=== PATIENT | female | born 1975 | race Caucasian/White ===

== ENCOUNTER → 2020-06-10 | Day surgery (SDC) | payer OTHER ==
[2020-06-02 15:31] LABS: ALBUMIN 3.9 G/DL (3.4-5.0); ALKALINE PHOSPHATASE 92 IU/L (46-116); BLOOD UREA NITROGEN 11 MG/DL (7-18); BUN/CREATININE RATIO 11.6 (6.6-38.0); CALCIUM 8.9 MG/DL (8.5-10.1); CHLORIDE 99 MMOL/L (99-107); CREATININE 0.95 MG/DL (0.40-0.90); PRE OP ALT 24 U/L (30-65); PRE OP ANION GAP 10 (8-16); PRE OP AST 15 U/L (10-37); PRE OP BILIRUB, TOTAL 0.3 MG/DL (0.0-1.0); PRE OP POTASSIUM 3.7 MMOL/L (3.4-5.1); PRE OP SODIUM 136 MMOL/L (135-145); TOTAL CARBON DIOXIDE 27.3 MMOL/L (24-32); eGFR 64 ML/MIN
[2020-06-02 15:32] LABS: HCG SERUM QL NEGATIVE
[2020-06-02 15:33] LABS: PRE OP GLUCOSE 295 MG/DL (70-104)
[2020-06-02 15:51] LABS: HEMOGLOBIN A1C 9.2 % (4.5-6.2)
[~2020-06-10] VITALS: Ht 160 cm; Wt 82.6 kg
[2020-06-10] VITALS (11 sets, daily range): BP systolic 107–144; BP diastolic 62–104
[~2020-06-10] MED LIST: BUPIVAcaine/PF 2.5 mg/ml (0.25%) 30ml vial ONE; HYDR-3964 PO; IBUP-1986 PO; INSU100I31 SQ; LIDOcaine 2% (20mg/ml) 5ml vial ONE; MIDAZolam 5mg/5ml vial ONE; ROPIVAcaine 0.5% (5mg/ml) 30ml vial ONE; acetaminophen 325mg tablet PO ONE; ascorbic acid 500mg tablet PO ONE; ceFAZolin 2gm in dextrose, iso 50 ML IV ONE; celeCOXIB 100mg capsule PO ONE; diazepam 5mg tablet PO ONE; duloxetine 20mg capsule.DR PO ONE; ePHEDrine 50MG/ML INJ. ONE; famotidine 20mg tablet PO ONE; fentaNYL/PF 50MCG/1 ML 2ML syringe ONE; gabapentin 300mg capsule PO ONE; insulin regular, human U-100 3ml vial - multi-dose IV ONE; meperidine/PF 25mg/ml syringe IV PRN; metoclopramide 5 mg/ml inj IV ONE; morphine 2 MG/ML inj. syringe IV PRN; morphine 4 MG/ML inj SYRINge IV PRN; ondansetron/PF 4mg/2ml inj IV PRN; ondansetron/PF 4mg/2ml inj ONE; oxyCODONE SR 10mg (sust. release) tab -2 tabs (20mg) PO ONE; proCHLORperazine 10 MG/2 ml inj IV PRN; propofol inj 20 ML IV ONE; ringers solution, lacted 1,000 ML IV SCH; sevoflurane 250ml liquid IH ONE; tranexamic acid 1gm/0.7% sal. 100 ML IV ONE; triamcinolone acetonide 40mg/ml inj ONE; vancomycin 1,500 MG in NS 300ml IV soln IV ONE
[2020-06-10 10:31] LABS: BASOPHILS % (AUTO) 0.4 % (0-1); EOSINOPHILS # (AUTO) 0.1 X10'3 (0-0.9); EOSINOPHILS % (AUTO) 0.5 % (0-6); HEMATOCRIT 38.3 % (35.0-45.0); HEMOGLOBIN 13.2 g/dl (12.0-16.0); LYMPHOCYTES # (AUTO) 1.2 X10'3 (1.1-4.8); MEAN CORPUSCULAR HEMOGLOBIN 29.8 PG (27.0-31.0); MEAN CORPUSCULAR HGB CONC 34.5 g/dL (33.0-36.5); MEAN CORPUSCULAR VOLUME 86.5 FL (78-98); MEAN PLATELET VOLUME 7.3 FL (7.4-10.4); MONOCYTES # (AUTO) 0.5 X10'3 (0-0.9); MONOCYTES % (AUTO) 4.6 % (2-12); NEUTROPHILS # (AUTO) 8.3 X10'3 (1.8-7.7); NEUTROPHILS % (AUTO) 82.5 % (42-75); PLATELET COUNT 371 X10'3 (140-440); RED BLOOD COUNT 4.43 X10'6 (4.20-5.60); RED CELL DISTRIBUTION WIDTH 13.1 % (11.5-14.5); WHITE BLOOD COUNT 10.1 X10'3 (4.5-11.0)
--- NOTE | 2020-06-10 14:01 | NUR ---
RECEIVED FROM OR VIA [facility] ACCOMPANIED BY ANESTHESIOLOGIST DR LOONEY, REPORT GIVEN. PT DROWSY BUT AROUSES EASILY WITH NO COMPLAINT OF PAIN. 20 GAUGE PIV L HAND PATENT AND RUNNING LR AT 100 ML. R SHOULDER DRESSING CDI. PPULSES PRESENT GOOD CAP REFILL, SKIN PINK AND WARM, VSS, RESTING COMFORTABLY AT THIS TIME.
--- NOTE | 2020-06-10 15:31 | NUR ---
PT AWAKE AND ALERT WITH NO COMPLAINT OF PAIN. 20 GAUGE PIV L HAND DC/D CATH TIP INTACT. R SHOULDER DRESSING CDI. PPULSES PRESENT GOOD CAP REFILL, SKIN PINK AND WARM, VSS, RESTING COMFORTABLY AT THIS TIME. ABLE TO AMBULATE AND TOLERATE FLUIDS. DISCHARGE INSTRUCTIONS GIVEN AND PT VERBALIZED UNDERSTANDING. TRANSPORTED VIA WHEELCHAIR TO SPOUSE IN PRIVATE VEHICLE TO HOME.
== END | disposition home or self-care (01) ==
LOC: PAS 09:04
PROVIDERS: ATTEND Orthopaedic Surgery
DX: S43.431A Superior glenoid labrum lesion of right shoulder, initial encounter (principal); M75.41 Impingement syndrome of right shoulder; M19.011 Primary osteoarthritis, right shoulder; M94.211 Chondromalacia, right shoulder; M17.12 Unilateral primary osteoarthritis, left knee; E11.51 Type 2 diabetes mellitus with diabetic peripheral angiopathy without gangrene; F41.9 Anxiety disorder, unspecified; E66.8 Other obesity; Z68.32 Body mass index [BMI] 32.0-32.9, adult; G89.18 Other acute postprocedural pain; Z79.899 Other long term (current) drug therapy; Z11.59 Encounter for screening for other viral diseases; Z72.89 Other problems related to lifestyle; Z87.891 Personal history of nicotine dependence; Z98.51 Tubal ligation status; Z98.890 Other specified postprocedural states; X58.XXXA Exposure to other specified factors, initial encounter; Y93.89 Activity, other specified; Y92.89 Other specified places as the place of occurrence of the external cause; Y99.8 Other external cause status
CPT/HCPCS: 29807; 29824; 29826; 36415; 64415; 76942; 80053; 82948; 83036; 84703; 85025; 93005; C1713; J2001; J2250; J2405; J2704; J2765; J3010; J3301; J3370; J3490; J7040; J7120; U0003; A4215; A4565; A4618; A6250; A6449; A7000; J1815; J2795